=== PATIENT | female | born 1990 | race Caucasian/White ===

== ENCOUNTER 2017-10-18 10:38 | Inpatient (IN) | payer BC ==
[2017-10-18] VITALS (37 sets, daily range): BP systolic 102–151; BP diastolic 54–79; PULSE 64–107; TEMP 97.7–98.6
[~2017-10-18] VITALS: Ht 165.1 cm; Wt 91.4 kg
[~2017-10-18 10:38] MED LIST: CALCIUM CITRAT200 MG PO; CALCIUM500 MG PO; ESTER C1 TA1 PO; LOESTRIN 21 1/21 TAB PO; MULTIVITAMIN FO1 CAP PO; VITAMIN D1000 IU PO
[2017-10-18 11:42] LABS: BASO % 0.2 % (0.0-2.0); EOS # 0.1 (0.0-0.7); EOS % 0.6 % (0-4.0); GRAN # 7.2 (1.4-6.5); GRAN % 72.1 % (42.2-75.2); HEMOGLOBIN 12.9 g/dl (12.5-16.0); LYMPH # 1.8 (1.2-3.4); LYMPH % 18.3 % (20.0-51.0); MEAN CELL VOLUME 94 fl (80.0-100.0); MEAN CORPUSCULAR HEMOGLOBIN 33 pg (27.0-31.0); MEAN CORPUSCULAR HGB CONC 35 g/dl (33.0-37.0); MEAN PLATELET VOLUME 9.9 fl (7.4-10.4); MONO # 0.8 (0.1-0.6); MONO % 8.4 % (1.7-9.3); PLATELET COUNT 149 K/mm3 (130-400); RED BLOOD COUNT 3.92 M/mm3 (4.10-5.30); REDCELL DISTRIBUTION WIDTH-CV 14.1 % (11.5-14.5)
[2017-10-18 11:44] LABS: HEMATOCRIT 36.9 % (37.0-47.0)
[2017-10-18 11:52] LABS: PARTIAL THROMBOPLASTIN TIME 26.5 SECONDS (26.0-37.0); PROTHROMBIN TIME 11.4 SECONDS (9.7-12.8)
[2017-10-18 12:17] LABS: LOW MOLECULAR WEIGHT HEPARIN 0.07 IU/mL (0.50-1.20)
[2017-10-18] MEDS ORDERED: PRENATAL (12:59)
[2017-10-18] MEDS ORDERED: LOVENOX 4040 MG/0.4 SQ (12:59)
[2017-10-19] VITALS: BP 118/55; PULSE 74
[2017-10-19 02:45] VITALS: BP 118/65; PULSE 79; TEMP 98.3
[2017-10-19 07:00] LABS: MEAN CELL VOLUME 94 fl (80.0-100.0); MEAN CORPUSCULAR HGB CONC 35 g/dl (33.0-37.0); MEAN PLATELET VOLUME 10.1 fl (7.4-10.4); PLATELET COUNT 143 K/mm3 (130-400); RED BLOOD COUNT 3.21 M/mm3 (4.10-5.30)
[2017-10-19 07:18] LABS: HEMATOCRIT 30.2 % (37.0-47.0); HEMOGLOBIN 10.5 g/dl (12.5-16.0); MEAN CORPUSCULAR HEMOGLOBIN 33 pg (27.0-31.0)
[2017-10-19 08:20] LABS: BAND 4 % (0-10); LYMPHOCYTE 13 % (20.0-51.0); NEUTROPHILS 79 % (42.0-75.2); PLATELET ESTIMATE NORMAL (NORMAL)
[2017-10-19] MEDS ORDERED: IBU600 MG PO (08:43)
[2017-10-19 09:30] VITALS: BP 110/78; PULSE 72; TEMP 98
[2017-10-19 15:45] VITALS: BP 1135/55; PULSE 91; TEMP 97.8
[2017-10-19 20:50] VITALS: BP 112/66; PULSE 78; TEMP 97.7
[2017-10-20 07:10] VITALS: BP 114/58; PULSE 77; TEMP 97.8
[2017-10-20 13:58] VITALS: BP 115/60; PULSE 79; TEMP 98.6
== END 2017-10-20 17:00 | disposition home or self-care (01) | DRG 775 ==
LOC: LDRO 10:38 → LDR 10:40 → OB 10-19
PROVIDERS: Obstetrics & Gynecology
PROC: 10E0XZZ Delivery of Products of Conception, External Approach (ICD-10-PCS; principal; 2017-10-18)
PROC: 0W8NXZZ Division of Female Perineum, External Approach (ICD-10-PCS; 2017-10-18)
DX: O48.0 Post-term pregnancy (principal); O99.12 Other diseases of the blood and blood-forming organs and certain disorders involving the immune mechanism complicating childbirth; D68.51 Activated protein C resistance; O77.0 Labor and delivery complicated by meconium in amniotic fluid; O75.89 Other specified complications of labor and delivery; O69.81X0 Labor and delivery complicated by cord around neck, without compression, not applicable or unspecified; Z3A.40 40 weeks gestation of pregnancy; Z37.0 Single live birth
CPT/HCPCS: J1650; J2210; J2400; J2590; J2795; J7120

== ENCOUNTER → 2017-10-24 | Outpatient (CLI) | payer BC ==
[~2017-10-24] MED LIST changes: +IBU600 MG PO; +LOVENOX 4040 MG/0.4 SQ; +PRENATAL
== END ==
LOC: OLC 10:17
DX: Z39.1 Encounter for care and examination of lactating mother (principal); Z71.89 Other specified counseling

== ENCOUNTER → 2017-10-31 | Outpatient (CLI) | payer BC | LOC: LAC 10:50 | DX: Z39.1 Encounter for care and examination of lactating mother (principal); Z71.89 Other specified counseling ==

== ENCOUNTER → 2017-11-07 | Outpatient (CLI) | payer BC | LOC: LAC 11:19 | DX: Z01.89 Encounter for other specified special examinations (principal) ==

== ENCOUNTER 2018-05-03 20:28 | Emergency (ER) | payer BC ==
[~2018-05-03] VITALS: Ht 165.1 cm; Wt 75.0 kg
[2018-05-03 20:31] VITALS: TEMP 97.9
[2018-05-03 21:07] LABS: BASO % 0.2 % (0.0-2.0); EOS # 0.2 (0.0-0.7); EOS % 2.6 % (0-4.0); GRAN # 2.4 (1.4-6.5); GRAN % 35.8 % (42.2-75.2); HEMATOCRIT 38.2 % (37.0-47.0); HEMOGLOBIN 13.7 g/dl (12.5-16.0); LYMPH # 3.4 (1.2-3.4); LYMPH % 52.6 % (20.0-51.0); MEAN CELL VOLUME 91 fl (80.0-100.0); MEAN CORPUSCULAR HEMOGLOBIN 33 pg (27.0-31.0); MEAN CORPUSCULAR HGB CONC 36 g/dl (33.0-37.0); MONO # 0.6 (0.1-0.6); MONO % 8.6 % (1.7-9.3); PLATELET COUNT 278 K/mm3 (130-400); RED BLOOD COUNT 4.21 M/mm3 (4.10-5.30); REDCELL DISTRIBUTION WIDTH-CV 11.8 % (11.5-14.5)
[2018-05-03 21:13] LABS: INR 0.9 (0.8-3.0); PROTHROMBIN TIME 10.6 SECONDS (9.7-12.8)
[2018-05-03 21:15] LABS: ALANINE AMINOTRANSFERASE 25 U/L (9-52); ALBUMIN 4.3 gm/dL (3.5-5.0); ALKALINE PHOSPHATASE 52 U/L (50-136); ANION GAP 10 mmol/L (7-16); AST,SGOT 17 U/L (15-37); BILIRUBIN,TOTAL 0.5 mg/dL (0.0-1.0); BLOOD UREA NITROGEN 10 mg/dL (7-17); CALCIUM 9.2 mg/dL (8.4-10.2); CARBON DIOXIDE 25 mmol/L (22-30); CHLORIDE 106 mmol/L (98-107); CREATININE, serum 0.76 mg/dL (0.52-1.25); GLUCOSE 88 mg/dL (74-106); POTASSIUM 3.4 mmol/L (3.4-5.0); SODIUM 142 mmol/L (137-145); TOTAL PROTEIN 7.5 gm/dL (6.4-8.2)
[2018-05-03 21:16] LABS: PARTIAL THROMBOPLASTIN TIME 30.7 SECONDS (26.0-37.0)
[2018-05-03] MEDS ORDERED: MUCINEX DM 30 M1 TE1 (21:23)
[2018-05-03 21:28] LABS: TROPONIN-I < 0.012 ng/mL (0.000-0.034)
[2018-05-03 22:35] VITALS: BP 135/81; PULSE 75
== END 2018-05-03 22:43 | disposition home or self-care (01) ==
LOC: COL.ER 20:28
PROVIDERS: Emergency Medicine
DX: R07.89 Other chest pain (principal); Z86.718 Personal history of other venous thrombosis and embolism

== ENCOUNTER → 2021-02-02 | Outpatient (CLI) | payer OTHER ==
[~2021-02-02] MED LIST changes: +MUCINEX DM 30 M1 TE1; +PRENATAL TABLET PO; +ZOLOFT 50MG50 MG PO
== END ==
LOC: ZCOL.LAB 08:00
DX: Z20.822 Contact with and (suspected) exposure to COVID-19 (principal)

== ENCOUNTER 2021-02-03 06:22 | Inpatient (IN) | payer OTHER ==
[2021-02-03] VITALS (33 sets, daily range): BP systolic 100–153; BP diastolic 52–84; PULSE 56–93; TEMP 97.3–97.9
[~2021-02-03] VITALS: Ht 162.6 cm; Wt 89.5 kg
[~2021-02-03 06:22] MED LIST changes: -PRENATAL TABLET PO; -ZOLOFT 50MG50 MG PO
--- NOTE | 2021-02-03 06:30 | NUR ---
0630- pt arrived on unit. Changed into clean gown. 0644- FHR monitor and TOCO connected to pt. Pt oriented to room. 0708- IV started in . LR running. 0710- Pit started at 2 per protocol. 0752- on unit and in to see pt. SVE /-2. 0753- AROM. Clear fluid and foul odor. Pt repositioned to comfort. Continuos monitoring of FHR and pt per protocol.
[2021-02-03 07:24] LABS: BASO % 0.3 % (0.0-2.0); EOS # 0.1 (0.0-0.7); EOS % 1.4 % (0-4.0); GRAN # 4.3 (1.4-6.5); GRAN % 58.1 % (42.2-75.2); HEMOGLOBIN 11.6 g/dl (12.5-16.0); LYMPH # 2.3 (1.2-3.4); LYMPH % 30.7 % (20.0-51.0); MEAN CELL VOLUME 94 fl (80.0-100.0); MEAN CORPUSCULAR HEMOGLOBIN 32 pg (27.0-31.0); MEAN CORPUSCULAR HGB CONC 34 g/dl (33.0-37.0); MEAN PLATELET VOLUME 9.9 fl (7.4-10.4); MONO # 0.7 (0.1-0.6); MONO % 9.1 % (1.7-9.3); PLATELET COUNT 185 K/mm3 (130-400); REDCELL DISTRIBUTION WIDTH-CV 13.4 % (11.5-14.5)
[2021-02-03 07:25] LABS: HEMATOCRIT 33.7 % (37.0-47.0)
[2021-02-03] MEDS ORDERED: LOVENOX 4040 MG/0.4 SQ (07:25)
[2021-02-03] MEDS ORDERED: PRENATAL TABLET PO (07:27)
--- NOTE | 2021-02-03 12:30 | NUR ---
1230- ON UNIT. REVIEWS HEART STRIP. NO NEW ORDERS AT THIS TIME.
--- NOTE | 2021-02-03 18:45 | NUR ---
Report recieved. Resting in bed. Voided 1000mls at this time. INT dc'd from right hand; tolerated well. Updated whiteboard and reviewed POC with parents.
[2021-02-04 00:20] VITALS: BP 115/65; PULSE 63; TEMP 97.7
--- NOTE | 2021-02-04 02:20 | NUR ---
When informed when next pain medication is to be administered pt states, "I will call you when I wake up if I want medication." to nsy for pt to sleep.
[2021-02-04 07:31] VITALS: BP 132/76; PULSE 78; TEMP 98.1
[2021-02-04] MEDS ORDERED: IBU600 MG PO (09:16)
[2021-02-04] MEDS ORDERED: ZOLOFT 50MG50 MG PO (09:18)
--- NOTE | 2021-02-04 12:05 | NUR ---
Initial visit attempt; Physician with patient, [employer] left card of congratulations and God's blessings for the of patient's daughter and information regarding the availability of [facility] at our hospital.
== END 2021-02-04 15:37 | disposition home or self-care (01) | DRG 806 ==
LOC: LDR 06:22 → OB 06:22
PROVIDERS: ADMIT Obstetrics & Gynecology
PROC: 10E0XZZ Delivery of Products of Conception, External Approach (ICD-10-PCS; principal; 2021-02-03)
PROC: 10907ZC Drainage of Amniotic Fluid, Therapeutic from Products of Conception, Via Natural or Artificial Opening (ICD-10-PCS; 2021-02-03)
PROC: 0UQMXZZ Repair Vulva, External Approach (ICD-10-PCS; 2021-02-03)
DX: O48.0 Post-term pregnancy (principal); D68.51 Activated protein C resistance; Z37.0 Single live birth; Z3A.40 40 weeks gestation of pregnancy; O70.0 First degree perineal laceration during delivery; O75.89 Other specified complications of labor and delivery
CPT/HCPCS: J2590; J7120

== ENCOUNTER 2021-09-05 08:00 | Emergency (ER) | payer OTHER ==
[~2021-09-05] VITALS: Ht 165.1 cm; Wt 79.5 kg
[~2021-09-05 08:00] MED LIST changes: +PRENATAL TABLET PO; +ZOLOFT 50MG50 MG PO
[2021-09-05 08:38] VITALS: BP 125/91; PULSE 83
[2021-09-10] MEDS ORDERED: ELIQUIS 5MG PO (15:39)
== END 2021-09-05 08:38 | disposition home or self-care (01) ==
LOC: COL.ER 08:00
DX: R05.9 Cough, unspecified (principal)
CPT/HCPCS: J1650

== ENCOUNTER → 2021-09-06 | Outpatient (CLI) | payer OTHER | LOC: COL.VAS 07:48 | DX: M79.89 Other specified soft tissue disorders (principal) ==

== ENCOUNTER 2021-09-19 14:20 | Emergency (ER) | payer OTHER ==
[~2021-09-19] VITALS: Ht 165.1 cm; Wt 79.5 kg
[~2021-09-19 14:20] MED LIST changes: +ELIQUIS 5MG PO
[2021-09-19 14:27] VITALS: TEMP 98
[2021-09-19 14:45] LABS: BASO % 0.4 % (0.0-2.0); EOS # 0.2 K/mm3 (0.0-0.7); EOS % 4.1 % (0.0-4.0); GRAN # 2.5 K/mm3 (1.4-6.5); GRAN % 48.3 % (42.2-75.2); HEMATOCRIT 39.1 % (37.0-47.0); HEMOGLOBIN 13.6 g/dl (12.5-16.0); LYMPH # 1.9 K/mm3 (1.2-3.4); LYMPH % 37.6 % (20.0-51.0); MEAN CELL VOLUME 91 fl (80.0-100.0); MEAN CORPUSCULAR HEMOGLOBIN 32 pg (27-31); MEAN CORPUSCULAR HGB CONC 35 g/dl (33.0-37.0); MONO # 0.5 K/mm3 (0.1-0.6); MONO % 9.4 % (1.7-9.3); PLATELET COUNT 284 K/mm3 (130-400); REDCELL DISTRIBUTION WIDTH-CV 12.5 % (11.5-14.5)
[2021-09-19 14:59] LABS: COLLECTION METHOD CLEAN CATCH
[2021-09-19 15:01] LABS: ALANINE AMINOTRANSFERASE 18 U/L (0-55); ALBUMIN 3.9 gm/dL (3.5-5.0); ALKALINE PHOSPHATASE 54 U/L (40-150); ANION GAP 10 mmol/L (7-16); AST,SGOT 13 U/L (5-34); BILIRUBIN,TOTAL 0.4 mg/dL (0.2-1.2); BLOOD UREA NITROGEN 13 mg/dL (7-19); CALCIUM 9.1 mg/dL (8.4-10.2); CARBON DIOXIDE 20 mmol/L (22-29); CHLORIDE 109 mmol/L (98-107); CREATININE, serum 0.81 mg/dL (0.57-1.11); GLUCOSE 102 mg/dL (70-99); LIPASE 33 U/L (8-78); POTASSIUM 3.6 mmol/L (3.5-4.5); SODIUM 139 mmol/L (136-145); TOTAL PROTEIN 7.6 gm/dL (6.2-8.1)
[2021-09-19 15:07] LABS: PH 7 (5-8); SQUAMOUS EPITHELIAL 0-2 /hpf (0-10); URINE APPEARANCE Clear (CLEAR/HAZY); URINE BACTERIA Rare /hpf (NONE SEEN); URINE BILIRUBIN Negative (NEGATIVE); URINE BLOOD 1+ (NEGATIVE); URINE COLOR Colorless (YELLOW); URINE GLUCOSE Negative (NEGATIVE); URINE KETONE Negative (NEGATIVE); URINE LEUKOCYTE ESTERASE Negative (NEGATIVE); URINE NITRATE Negative (NEGATIVE); URINE PROTEIN(semi-quant) Negative (NEGATIVE); URINE RBC 0-2 /hpf (0-2); URINE UROBILINOGEN Negative (NEGATIVE)
[2021-09-19 15:09] LABS: TROPONIN-I < 0.010 ng/mL (0.00-0.033)
[2021-09-19 16:22] VITALS: BP 141/67; PULSE 66
== END 2021-09-19 16:22 | disposition home or self-care (01) ==
LOC: COL.ER 14:20
PROVIDERS: Nurse Practitioner Primary Care
DX: R07.89 Other chest pain (principal); Z86.718 Personal history of other venous thrombosis and embolism; Z79.01 Long term (current) use of anticoagulants
CPT/HCPCS: Q9967

== ENCOUNTER 2023-10-07 08:02 | Inpatient (IN) | payer BC ==
[2023-10-07] VITALS (11 sets, daily range): BP systolic 103–139; BP diastolic 66–88; PULSE 18–99; TEMP 98.1–98.9
[~2023-10-07] VITALS: Ht 165.1 cm; Wt 86.3 kg
[2023-10-07] MEDS ORDERED: Ketorolac 30 MG/ML VIAL IV ONE (08:45)
[2023-10-07] MEDS ORDERED: NS 1,000 ML IV ONE ×2 (08:45→11:00)
[2023-10-07] MEDS ORDERED: Ondansetron 4 MG/2 ML VIAL IV ONE (08:45)
[2023-10-07 09:13] LABS: BASO % 0.4 % (0.0-2.0); EOS % 0.1 % (0.0-4.0); GRAN # 9.7 K/mm3 (1.4-6.5); GRAN % 86.4 % (42.2-75.2); HEMATOCRIT 43.3 % (37.0-47.0); HEMOGLOBIN 15.3 g/dl (12.5-16.0); LYMPH % 8.9 % (20.0-51.0); MEAN CELL VOLUME 91 fl (80.0-100.0); MEAN CORPUSCULAR HEMOGLOBIN 32 pg (27-31); MEAN CORPUSCULAR HGB CONC 35 g/dl (33.0-37.0); MEAN PLATELET VOLUME 9.1 fl (7.4-10.4); MONO # 0.5 K/mm3 (0.1-0.6); PLATELET COUNT 262 K/mm3 (130-400); RED BLOOD COUNT 4.74 M/mm3 (4.10-5.30); REDCELL DISTRIBUTION WIDTH-CV 12.5 % (11.5-14.5)
[2023-10-07 09:24] LABS: BILIRUBIN,TOTAL 0.9 mg/dL (0.2-1.2); C-REACTIVE PROTEIN 8.35 mg/dL (0.00-0.50); CALCIUM 10.1 mg/dL (8.4-10.2); CREATININE, serum 1.01 mg/dL (0.57-1.11); POTASSIUM 3.6 mEq/L (3.5-4.5); TOTAL PROTEIN 8.2 g/dl (6.2-8.1)
[2023-10-07] MEDS ORDERED: Iohexol 300 - 100 ML VIAL IV ONE (09:33)
[2023-10-07] MEDS ORDERED: NS 100 ML IV SCH (09:34)
[2023-10-07] MEDS ORDERED: Morphine 4 MG/ML VIAL IV ONE (10:15)
[2023-10-07] MEDS ORDERED: LIDOCAINE ONE (11:53)
[2023-10-07] MEDS ORDERED: Ondansetron 4 MG/2 ML VIAL ONE (11:53)
[2023-10-07] MEDS ORDERED: dexAMETHasone 10 MG/ML VIAL ONE (11:53)
[2023-10-07] MEDS ORDERED: fentaNYL 50 MCG/ML 2 ML VIAL ONE (11:54)
[2023-10-07] MEDS ORDERED: Rocuronium 50 MG/5 ML Multi-Dose VIAL ONE (11:54)
[2023-10-07] MEDS ORDERED: HYDROmorphone 2 MG/1 ML VIAL IV PRN (12:15)
[2023-10-07] MEDS ORDERED: Morphine 4 MG/ML VIAL IV PRN ×2 (12:15→13:45)
[2023-10-07] MEDS ORDERED: droPERidol 2.5 MG/ML 2 ML VIAL IV PRN (12:15)
[2023-10-07] MEDS ORDERED: Ondansetron 4 MG/2 ML VIAL IV PRN ×2 (12:15→13:45)
[2023-10-07] MEDS ORDERED: Meperidine 50 MG/ML 1 ML VIAL IV PRN (12:15)
[2023-10-07] MEDS ORDERED: fentaNYL 50 MCG/ML 2 ML VIAL IV PRN (12:15)
--- NOTE | 2023-10-07 13:25 | NUR ---
PATIENT ARRIVED TO UNIT AWAKE ALERT AN ORIENTED. STILL SLEEPY HOWEVER EASILY AROUSES TO NAME. 3 LAP SITE TO THE ABD CDI. POST OP VITALS INITIATED, INITIAL VSS. CALL LIGHT WITHIN REACH. PATIENT ORIENTED TO ROOM AND CALL LIGHT.
--- NOTE | 2023-10-07 14:20 | NUR ---
ABDOULAYE WITH COMPLAINTS OF GAS-LIKE PAIN. PATIENT ABLE TO WALK WITH SUPERVISION TO DO A LAP ROUND UNIT. PATIENT STILL WITH PAIN.. PAIN MEDICAITON GIVEN (SEE EMAR). PATIENT NOW SITTING UP IN BED. CALL LIGHT WITHIN REACH.
[2023-10-07] MEDS ORDERED: DOXYCYCLINE 10100 MG PO (14:26)
[2023-10-07] MEDS ORDERED: ZOLOFT 50MG50 MG PO (14:27)
--- NOTE | 2023-10-07 16:07 | NUR ---
ABDOULAYE STATED PAIN IS NOW TOLERABLE AND FEELS MORE LIKE HER ABDOMEN IN SORE. PATIENT DENIES ANY NEEDS OR COMPLAINTS AT THIS TIME. CALL LIGHT WITHIN REACH, HER AT BEDSIDE.
--- NOTE | 2023-10-07 20:25 | NUR ---
Assessment complete. Patient just completed a walk around the unit and has returned to bed, currently rating pain 7/10 in abdomen but denies any nausea. has left the bedside for the evening. States she has been passing gas but reports it is painful and continues to have gas pain in her shoulders. Call light is within reach. Will reassess pain in 1 hour.
[2023-10-08] VITALS (12 sets, daily range): BP systolic 102–118; BP diastolic 62–76; PULSE 90–96; TEMP 98–98.5
--- NOTE | 2023-10-08 06:40 | NUR ---
PT RESTING IN BED. PT IS ON RA AND NOT ON TELE. PT IS AXOX3. PT HAS THREE LAP SITES WITH BANDAIDS AND NO DRAINAGE. PT HAS CALL LIGHT AND ISNTRUCTED TO CALL WITH ALL NEEDS.
[2023-10-08] MEDS ORDERED: Polyethylene Glycol 3350 17 GM PDS PO PRN (08:15)
--- NOTE | 2023-10-08 08:59 | NUR ---
SW met with patient to complete intake and discuss discharge planning, patient was alert and sitting up in her bed. Patient's (Luiz Powell [phone]) was presented and permitted by patient to remain in room during intake. Patient shared that her PCP is Dr Hein with [facility] and pharmacy of choice is [facility] (closed Sundays) requesting alternative to be [facility], [place], operated by [facility]. Patient informed SW that she currently does not use any DMEs and independent with ADLs. Patient reports that they do not have DPOA and not interested in completing at this time. Patient plan is to discharge back to her home in [place] with her , pending medical recommendations.
[2023-10-08] MEDS ORDERED: Apixaban 5 MG TAB PO SCH (09:00)
--- NOTE | 2023-10-08 21:23 | NUR ---
Pt in bed, independent in room. HS Lovenox given. Has 3 lap sites to abd D/I. Reports passing gas. Medicated with [place] 1 tab po for pain to abd 02/09. Has int to RAC, flushes well. Is alert and oriented x4.
[2023-10-09] VITALS (11 sets, daily range): BP systolic 105–128; BP diastolic 66–85; PULSE 71–87; TEMP 98.2–99.3
--- NOTE | 2023-10-09 01:58 | NUR ---
PT REPORTS HEADACHE AND ABD PAIN. NORCO GIVEN. IV ANTIBIOTIC INFUSING WITHOUT PROBLEM.
--- NOTE | 2023-10-09 06:04 | NUR ---
IV ANTIBIOTIC COMPLETE. NO REQUESTS AT THIS TIME.
[2023-10-09 06:16] LABS: BASO % 0.3 % (0.0-2.0); EOS # 0.1 K/mm3 (0.0-0.7); GRAN # 4.8 K/mm3 (1.4-6.5); GRAN % 65.8 % (42.2-75.2); LYMPH # 1.9 K/mm3 (1.2-3.4); LYMPH % 26.6 % (20.0-51.0); MEAN CORPUSCULAR HGB CONC 35 g/dl (33.0-37.0); MEAN PLATELET VOLUME 9.2 fl (7.4-10.4); MONO # 0.5 K/mm3 (0.1-0.6); MONO % 6.2 % (1.7-9.3); PLATELET COUNT 195 K/mm3 (130-400); RED BLOOD COUNT 3.55 M/mm3 (4.10-5.30); REDCELL DISTRIBUTION WIDTH-CV 12.9 % (11.5-14.5)
[2023-10-09 06:25] LABS: HEMATOCRIT 32.3 % (37.0-47.0); HEMOGLOBIN 11.4 g/dl (12.5-16.0); MEAN CORPUSCULAR HEMOGLOBIN 32 pg (27-31)
[2023-10-09 06:26] LABS: MEAN CELL VOLUME 91 fl (80.0-100.0)
--- NOTE | 2023-10-09 08:00 | NUR ---
Pt laying in bed. A&Ox4. S1S2. Clear lungs. ABD is rounded, soft. Pt reports tenderness/pain in URQ. Rates pain 8/10 Started this AM after going to bathroom. Pt did not want pain meds, pressing warm blanket across ABD helped. Palpale pulses in all extremities with normal strength. IV INT in R AC - patent, no issues. Pt has call light in reach.
--- NOTE | 2023-10-09 10:43 | NUR ---
D: Initial visit: Fnp stopped by room on rounds. Pt was resting and content. A: Pt was trying to take a nap. No needs right now. P: Fnp informed pt that if she needed anything from the instructional developer area to let her nurse know. Fnp will follow up as needed.
[2023-10-09] MEDS ORDERED: Iohexol 300 - 100 ML VIAL IV ONE (12:39)
--- NOTE | 2023-10-09 16:04 | NUR ---
Pt sitting up in bed. Pt denies pain, but reports starting to feel nauseous. Discussed options, Pt elected to try Sprite to settle stomach. Pt has call light in reach.
[2023-10-09] MEDS ORDERED: Amoxicillin/Clavulanate K+ 875/125 MG TAB PO SCH (17:00)
--- NOTE | 2023-10-09 20:53 | NUR ---
PT INDEPENDENT IN ROOM. ABD SOFT, REPORTS BM. LAP SITES DRY. MEDICATED WITH HS MEDS INCLUDING NORCO FOR ABD PAIN. INT TO RAC.
[2023-10-09] MEDS ORDERED: Apixaban 5 MG TAB PO SCH (21:00)
[2023-10-10 00:11] VITALS: BP_SYST 121
--- NOTE | 2023-10-10 04:00 | NUR ---
NO REQUEST FOR PAIN MEDS. RESTING IN BED.
[2023-10-10 04:22] VITALS: BP 123/80; PULSE 73; TEMP 97.9
[2023-10-10 04:24] VITALS: BP_SYST 123
[2023-10-10 07:41] VITALS: BP 128/79; PULSE 73; TEMP 97.7
--- NOTE | 2023-10-10 07:44 | NUR ---
Pt laying in bed. A&Ox4. VSS. S1S2. Clear lungs. ABD is rounded, soft, non-tender. Pt denies pain, n/v. Reports dizziness when she stands up quickly, but resolves. Pt reports watery diarrhea with flatus. Discussed possibility of ABX causing diarrhea. Palpable pulses in all extremities with normal strength and ROM. Lap sites on ABD are CDI with bandaids. IV in R AC is patent and INT. Pt has call light in reach.
[2023-10-10 09:06] VITALS: BP_SYST 128
[2023-10-10] MEDS ORDERED: AMOXICILLIN 8751 TAB PO (10:47)
[2023-10-10 11:35] VITALS: BP 126/83; PULSE 89; TEMP 98.4
--- NOTE | 2023-10-10 12:00 | NUR ---
Pt and family educated on D/C information and instructions. Answered family questions. Discontinued Pt's IV, catheter tip in tact. Pt ambulated by self to car.
[2023-10-11 23:08] LABS: SPOTTED FEVER IGG ANTIBODY <1:64 (())
== END 2023-10-10 12:00 | disposition home or self-care (01) | DRG 398 ==
LOC: COL.ER 08:02 → SURG 10:50
PROVIDERS: Emergency Medicine; ADMIT Surgery
PROC: 0DTJ4ZZ Resection of Appendix, Percutaneous Endoscopic Approach (ICD-10-PCS; principal; 2023-10-07 12:00)
DX: K35.201 Acute appendicitis with generalized peritonitis, with perforation, without abscess (principal); D68.51 Activated protein C resistance; R18.8 Other ascites; K91.89 Other postprocedural complications and disorders of digestive system; K56.7 Ileus, unspecified; F41.9 Anxiety disorder, unspecified; F32.A Depression, unspecified; Z20.822 Contact with and (suspected) exposure to COVID-19; K59.00 Constipation, unspecified; Z79.01 Long term (current) use of anticoagulants; Z79.899 Other long term (current) drug therapy; Z23 Encounter for immunization
CPT/HCPCS: G0378; J1100; J1650; J1885; J2270; J2405; J2543; J2704; J3010; J7030; Q9967